=== PATIENT | female | born 1985 | race Caucasian/White ===

== ENCOUNTER 2020-05-05 15:16 | Emergency (ER) | payer BC, OTHER ==
--- NOTE | 2020-05-05 15:40 | EDM.PDOC ---
ED HPI GENERAL MEDICAL PROBLEM - General Chief Complaint: Upper Extremity Injury/Pain Stated Complaint: LEFT THUMB INJURY Time Seen by Provider: 05/05/20 15:30 Source of Information: Reports: Patient History Limitations: Reports: No Limitations - History of Present Illness INITIAL COMMENTS - FREE TEXT/NARRATIVE: Patient presented to the ED because she accidentally cut her left thumb with a knife while preparing dinner. She sustained 2 cm laceration and is able extend and flex her left thumb w/o any difficulty. left thumb Pain Score (Numeric/FACES): 7 Review of Systems - Review of Systems Review Of Systems: See Below Constitutional: Reports: No Symptoms Ears: Reports: No Symptoms Nose: Reports: No Symptoms Mouth/Throat: Reports: No Symptoms Respiratory: Reports: No Symptoms Cardiovascular: Reports: No Symptoms GI/Abdominal: Reports: No Symptoms Genitourinary: Reports: No Symptoms Musculoskeletal: Reports: No Symptoms Skin: Reports: Wound ED EXAM, GENERAL - Physical Exam Exam: See Below Exam Limited By: No Limitations General Appearance: Alert, No Apparent Distress Ears: Normal External Exam, Normal Canal Nose: Normal Inspection, Normal Mucosa, No Blood Throat/Mouth: Normal Inspection, Normal Lips, Normal Teeth Head: Atraumatic, Normocephalic Neck: Normal Inspection, Supple, Non-Tender, Full Range of Motion Cardiovascular: Normal Peripheral Pulses, Regular Rate, Rhythm, No Edema, No Gallop GI/Abdominal: Normal Bowel Sounds, Soft, Non-Tender, No Organomegaly Back Exam: Normal Inspection, Full Range of Motion Extremities: Normal Inspection, Normal Range of Motion, Non-Tender Psychiatric: Normal Affect Skin Exam: Warm ED TRAUMA EXTREMITY PROCEDURES - Laceration/Wound Repair Left Other Lac/Wound Length In cm: 2 Appearance: Superficial, Clean Closed With: Dermabond, Steri-Strips Course - Vital Signs Text/Narrative:: UTD with immunization Last Recorded V/S: Last Vital Signs Temp 37.1 C 05/05/20 15:25 Pulse 68 05/05/20 15:25 Resp 17 05/05/20 15:25 BP 150/97 H 05/05/20 15:25 Pulse Ox 99 05/05/20 15:25 Departure - Departure Time of Disposition: 15:45 Disposition: Home, Self-Care 01 Condition: Good Clinical Impression: Laceration - Discharge Information Instructions: Laceration Care, Adult, [id number] Forms: ED Department Discharge Additional Instructions: please read discharge instructions on laceration no need to apply an antibiotic ointment, the glue is medicated keep the wound dry for 3-5 days do not remove the steri-strips, it will eventually fall off follow up as needed Sepsis Event Note (ED) - Evaluation Sepsis Screening Result: No Definite Risk - Focused Exam Vital Signs: Vital Signs Temp Pulse Resp BP Pulse Ox 05/05/20 15:25 37.1 C 68 17 150/97 H 99
== END 2020-05-05 15:45 | disposition home or self-care (01) ==
LOC: FB.ED 15:16
DX: S61.012A Laceration without foreign body of left thumb without damage to nail, initial encounter (principal); W26.0XXA Contact with knife, initial encounter
CPT/HCPCS: 12001; 12011; 99282; 99282-25

== ENCOUNTER 2020-12-16 16:08 | Emergency (ER) | payer OTHER ==
[2020-12-16] MEDS ORDERED: Sulfamethoxazole/Trimethoprim 800-160 MG Tab PO ONE (16:09)
[2020-12-16] MEDS ORDERED: Sodium Chloride 0.9% 10 ML Syringe FLUSH PRN (16:27)
[2020-12-16] MEDS ORDERED: Morphine 2 MG/ML SYRINGE IVPUSH STA (16:29)
[2020-12-16] MEDS ORDERED: Ketorolac 30 MG/ML SDV IVPUSH STA (16:29)
[2020-12-16] MEDS ORDERED: Ondansetron 4 MG/2 ML SDV IVPUSH STA (16:29)
[2020-12-16] MEDS ORDERED: Alum Hydroxide/Mag Hydroxide 15 ML, Lidocaine 2% 15 ML PO ONE ×2 (16:33)
[2020-12-16] MEDS ORDERED: Iopamidol 755 Mg/ML 100 ML Bottle IV ONE (16:54)
--- NOTE | 2020-12-16 17:03 | EDM.PDOC ---
ED HPI GENERAL MEDICAL PROBLEM - General Chief Complaint: Abdominal Pain Stated Complaint: L SIDE ABD PAIN Time Seen by Provider: 12/16/20 16:20 Source of Information: Reports: Patient History Limitations: Reports: No Limitations - History of Present Illness INITIAL COMMENTS - FREE TEXT/NARRATIVE: Patient presented to the ED because of 2 day history of abdominal pain,epigastric and RLQ pain. The pain is sharp, constant,7/10 with associated nausea and vomiting. There is no fever but has chills. She also c/o headache,constipation and increase frequency of urination. Left Upper Abdomen Pain Score (Numeric/FACES): 6 - Related Data Allergies Allergy/AdvReac Type Severity Reaction Status Date / Time No Known Allergies Allergy Verified 05/05/20 15:49 Home Meds: Home Meds Sertraline [Zoloft] 50 mg PO DAILY 05/05/20 [History] lisinopriL [Lisinopril] 20 mg DAILY 12/16/20 [History] traMADol [Ultram] 100 mg PO Q8H PRN #15 tab 12/16/20 [Rx] Past Medical History - Past Health History Medical/Surgical History: Denies Medical/Surgical History Cardiovascular History: Reports: High Cholesterol, Hypertension Genitourinary History: Reports: UTI, Recurrent [employer]NER History: Reports: Other (See Below) Other [employer]NER History: IUD placed 2017 Psychiatric History: Reports: Depression - Infectious Disease History Infectious Disease History: Reports: None Social & Family History - Family History Family Medical History: No Pertinent Family History - Tobacco Use Tobacco Use Status *Q: Never Tobacco User - Caffeine Use Caffeine Use: Reports: Coffee, Soda - Recreational Drug Use Recreational Drug Use: No ED ROS GENERAL - Review of Systems Review Of Systems: See Below Constitutional: Reports: No Symptoms HEENT: Reports: No Symptoms Respiratory: Reports: No Symptoms Cardiovascular: Reports: No Symptoms Endocrine: Reports: No Symptoms GI/Abdominal: Reports: Abdominal Pain, Constipation, Nausea, Vomiting : Reports: Frequency Musculoskeletal: Reports: No Symptoms Skin: Reports: No Symptoms Neurological: Reports: No Symptoms Psychiatric: Reports: No Symptoms Hematologic/Lymphatic: Reports: No Symptoms ED EXAM, GI/ABD - Physical Exam Exam: See Below Exam Limited By: No Limitations General Appearance: Alert, No Apparent Distress Ears: Normal External Exam, Normal Canal, Hearing Grossly Normal, Normal TMs Nose: Normal Inspection, Normal Mucosa, No Blood Throat/Mouth: Normal Inspection, Normal Lips, Normal Teeth, Normal Gums Head: Atraumatic, Normocephalic Neck: Normal Inspection, Supple, Non-Tender, Full Range of Motion Respiratory/Chest: No Respiratory Distress, Lungs Clear, Normal Breath Sounds, No Accessory Muscle Use, Chest Non-Tender Cardiovascular: Normal Peripheral Pulses, Regular Rate, Rhythm, No Edema, No Gallop, No JVD, No Murmur, No Rub GI/Abdominal Exam: Normal Bowel Sounds, Soft, Non-Tender, No Organomegaly Back Exam: Normal Inspection, Full Range of Motion Extremities: Normal Inspection, Normal Range of Motion, Non-Tender, No Pedal Edema, Normal Capillary Refill Neurological: Alert, Oriented, CN II-XII Intact Course - Vital Signs Text/Narrative:: Lab/CT abd-pelvis result was reviewed and discussed with patient labetalol 20 mg IV x2 Clonidine 0.2 mg PPO x1 hydralazine 20 mg IV x1 Morphine 2 mg IV x1 Zofran 4 mg IV x1 Toradol 30 mg IV x1 Last Recorded V/S: Last Vital Signs Temp 36.3 C 12/16/20 16:17 Pulse 99 12/16/20 18:11 Resp 15 12/16/20 18:11 BP 159/91 H 12/16/20 18:11 Pulse Ox 98 12/16/20 18:11 - Orders/Labs/Meds Orders: Active Orders 24 hr Category Date Time Status Abdomen Pelvis w Cont [CT] Stat Exams 12/16/20 16:34 Taken CULTURE URINE [RM] Stat Lab 12/16/20 18:13 Ordered Saline Lock Insert [OM.PC] Routine Oth 12/16/20 16:27 Ordered Labs: Laboratory Tests 12/16/20 12/16/20 12/16/20 Range/Units 16:45 16:45 17:21 WBC 9.1 (3.0-10.3) x10-3/uL RBC 4.32 (3.60-5.20) x10(6)uL Hgb 13.3 (11.4-15.5) g/dL Hct 39.6 (34.2-48.2) % MCV 91.5 (76.7-100.5) fL MCH 30.9 (23.9-33.9) pg MCHC 33.7 (31.9-34.8) g/dL RDW 12.6 (12.3-16.5) % Plt Count 237 (151-488) x10(3)uL MPV 8.2 (7.1-12.4) fL Neut % (Auto) 75.9 (30.8-76.2) % Lymph % (Auto) 15.9 L (18.4-52.1) % [place] % (Auto) 6.9 (4.4-15.7) % Eos % (Auto) 1.0 (0.6-8.1) % Baso % (Auto) 0.3 (0.2-1.5) % Neut # (Auto) 6.9 H (1.5-6.3) x10-3/uL Lymph # (Auto) 1.5 (1.0-4.4) x10-3/uL [place] # (Auto) 0.6 (0.3-1.0) x10-3/uL Eos # (Auto) 0.1 (0.0-0.8) x10-3/uL Baso # (Auto) 0.0 (0.0-0.1) x10-3/uL Sodium (135-145) mmol/L Potassium (3.5-5.3) mmol/L Chloride (100-110) mmol/L Carbon Dioxide (21-32) mmol/L BUN (7-18) mg/dL Creatinine (0.55-1.02) mg/dL Est Cr Clr Drug Dosing mL/min Estimated GFR (MDRD) (>60) BUN/Creatinine Ratio (9-20) Glucose (80-116) mg/dL Calcium (8.6-10.2) mg/dL Total Bilirubin (0.1-1.3) mg/dL AST (5-25) IU/L ALT (12-36) U/L Alkaline Phosphatase (56-112) IU/L Troponin I (4.0-60.3) pg/mL Total Protein (6.0-8.0) g/dL Albumin (3.5-5.2) g/dL Globulin g/dL Albumin/Globulin Ratio Amylase (25-115) U/L Lipase (73-393) U/L Urine Color Yellow (YELLOW) Urine Appearance Slightly cloudy (CLEAR) Urine pH 5.0 (5.0-6.5) Ur Specific [place] 1.030 H (1.010-1.025) Urine Protein 30 H (NEGATIVE) mg/dL Urine Glucose (UA) Normal (NORMAL) mg/dL Urine Ketones 15 H (NEGATIVE) mg/dL Urine Occult Blood Moderate H (NEGATIVE) Urine Nitrite Negative (NEGATIVE) Urine Bilirubin Small H (NEGATIVE) Urine Urobilinogen 1 H (NEGATIVE) mg/dL Ur Leukocyte Esterase Small H (NEGATIVE) Urine RBC 0-5 (0-5) Urine WBC 0-5 (0-5) Ur Squamous Epith Cells Many H (NS,R,O) Urine Bacteria Few H (NS) Urine Mucus Moderate H (NS) Urine HCG, Qual Negative (NEGATIVE) 12/16/20 12/16/20 12/16/20 Range/Units 17:21 17:21 17:21 WBC (3.0-10.3) x10-3/uL RBC (3.60-5.20) x10(6)uL Hgb (11.4-15.5) g/dL Hct (34.2-48.2) % MCV (76.7-100.5) fL MCH (23.9-33.9) pg MCHC (31.9-34.8) g/dL RDW (12.3-16.5) % Plt Count (151-488) x10(3)uL MPV (7.1-12.4) fL Neut % (Auto) (30.8-76.2) % Lymph % (Auto) (18.4-52.1) % [place] % (Auto) (4.4-15.7) % Eos % (Auto) (0.6-8.1) % Baso % (Auto) (0.2-1.5) % Neut # (Auto) (1.5-6.3) x10-3/uL Lymph # (Auto) (1.0-4.4) x10-3/uL [place] # (Auto) (0.3-1.0) x10-3/uL Eos # (Auto) (0.0-0.8) x10-3/uL Baso # (Auto) (0.0-0.1) x10-3/uL Sodium 138 (135-145) mmol/L Potassium 4.0 (3.5-5.3) mmol/L Chloride 103 (100-110) mmol/L Carbon Dioxide 24 (21-32) mmol/L BUN 20 H (7-18) mg/dL Creatinine 0.9 (0.55-1.02) mg/dL Est Cr Clr Drug Dosing 76.06 mL/min Estimated GFR (MDRD) > 60 (>60) BUN/Creatinine Ratio 22.2 H (9-20) Glucose 99 (80-116) mg/dL Calcium 9.0 (8.6-10.2) mg/dL Total Bilirubin 0.4 (0.1-1.3) mg/dL AST 54 H (5-25) IU/L ALT 56 H (12-36) U/L Alkaline Phosphatase 80 (56-112) IU/L Troponin I 6.0 (4.0-60.3) pg/mL Total Protein 7.3 (6.0-8.0) g/dL Albumin 3.8 (3.5-5.2) g/dL Globulin 3.5 g/dL Albumin/Globulin Ratio 1.1 Amylase 34 (25-115) U/L Lipase 86 (73-393) U/L Urine Color (YELLOW) Urine Appearance (CLEAR) Urine pH (5.0-6.5) Ur Specific [place] (1.010-1.025) Urine Protein (NEGATIVE) mg/dL Urine Glucose (UA) (NORMAL) mg/dL Urine Ketones (NEGATIVE) mg/dL Urine Occult Blood (NEGATIVE) Urine Nitrite (NEGATIVE) Urine Bilirubin (NEGATIVE) Urine Urobilinogen (NEGATIVE) mg/dL Ur Leukocyte Esterase (NEGATIVE) Urine RBC (0-5) Urine WBC (0-5) Ur Squamous Epith Cells (NS,R,O) Urine Bacteria (NS) Urine Mucus (NS) Urine HCG, Qual (NEGATIVE) Meds: Medications Discontinued Medications Generic Name Dose Route Start Last Admin Trade Name Freq PRN Reason Stop Dose Admin Clonidine HCl 0.2 mg 12/16/20 17:45 12/16/20 17:35 Clonidine 0.1 Mg Tab PO 0.2 mg DAILY CORRINA Administration Al Hydroxide/Mg Hydroxide 15 0 ml 12/16/20 16:33 12/16/20 16:45 ml/ Lidocaine HCl 15 ml PO 12/16/20 16:34 15 ml ONETIME ONE Administration Hydralazine HCl 20 mg 12/16/20 17:06 12/16/20 17:17 Hydralazine 20 Mg/Ml Sdv IVPUSH 12/16/20 17:07 20 mg NOW STA Administration Iopamidol 100 ml 12/16/20 16:54 12/16/20 17:14 Iopamidol 755 Mg/Ml 100 Ml Bottle IV 12/16/20 16:55 100 ml . DIRECTED ONE Administration Ketorolac Tromethamine 30 mg 12/16/20 16:29 12/16/20 16:35 Ketorolac 30 Mg/Ml Sdv IVPUSH 12/16/20 16:30 30 mg NOW STA Administration Labetalol HCl 20 mg 12/16/20 17:30 12/16/20 17:36 Labetalol 20 Mg/4 Ml Syringe IVPUSH 12/16/20 17:31 20 mg NOW STA Administration Protocol Morphine Sulfate 2 mg 12/16/20 16:29 12/16/20 16:35 Morphine 2 Mg/Ml Syringe IVPUSH 12/16/20 16:30 2 mg NOW STA Administration Ondansetron HCl 4 mg 12/16/20 16:29 12/16/20 16:37 Ondansetron 4 Mg/2 Ml Sdv IVPUSH 12/16/20 16:30 4 mg NOW STA Administration Sodium Chloride 10 ml 12/16/20 16:27 12/16/20 16:31 Sodium Chloride 0.9% 10 Ml Syringe FLUSH 10 ml ASDIRECTED PRN Administration Keep Vein Open Trimethoprim/Sulfamethoxazole 10 tab 12/16/20 16:09 Sulfamethoxazole/Trimethoprim 800-160 Mg Tab PO 12/16/20 16:10 .STK-MED ONE Departure - Departure Time of Disposition: 18:30 Disposition: Home, Self-Care 01 Condition: Good Clinical Impression: Hypertensive crisis, Abdominal pain, GERD (gastroesophageal reflux disease), Cholelithiasis - Discharge Information Prescriptions: traMADol [Ultram] 100 mg PO Q8H PRN #15 tab PRN Reason: Pain Instructions: Food Choices for Gastroesophageal Reflux Disease, Adult, [id number], Cholelithiasis, [id number], Urinary Tract Infection, Adult, Hypertension, Adult, [id number] Referrals: Daisy Waters NP [Primary Care Provider] - Forms: ED Department Discharge Additional Instructions: Please read discharge instructions on gallstones(cholelithiasis),G ERD,Hypertensive crisis Follow up with your doctor with regards to your gallstones and poorly controlled high blood pressure Septra DS twice daily for 5 days Tramadol 50 mg, 2 tablets with tylenol 1000 mg every 8 hours as needed for pain Sepsis Event Note (ED) - Evaluation Sepsis Screening Result: No Definite Risk - My Orders Last 24 Hours: My Active Orders 12/16/20 16:27 Saline Lock Insert [OM.PC] Routine 12/16/20 16:34 Abdomen Pelvis w Cont [CT] Stat 12/16/20 18:13 CULTURE URINE [RM] Stat - Assessment/Plan Last 24 Hours: My Active Orders 12/16/20 16:27 Saline Lock Insert [OM.PC] Routine 12/16/20 16:34 Abdomen Pelvis w Cont [CT] Stat 12/16/20 18:13 CULTURE URINE [RM] Stat
[2020-12-16] MEDS ORDERED: hydrALAZINE 20 MG/ML SDV IVPUSH STA (17:06)
[2020-12-16] MEDS ORDERED: Labetalol 20 MG/4 ML Syringe IVPUSH STA (17:30)
[2020-12-16] MEDS ORDERED: cloNIDine 0.1 MG Tab PO SCH (17:45)
== END 2020-12-16 18:44 | disposition home or self-care (01) ==
LOC: FB.ED 16:08
DX: K80.20 Calculus of gallbladder without cholecystitis without obstruction (principal); K21.9 Gastro-esophageal reflux disease without esophagitis; I16.9 Hypertensive crisis, unspecified; E78.00 Pure hypercholesterolemia, unspecified; I10 Essential (primary) hypertension; Z79.899 Other long term (current) drug therapy
CPT/HCPCS: 36415; 74177; 80053; 81001; 81025; 82150; 83690; 84484; 85025; 87086; 96374; 96375; 99284; A9270; J0360; J1885; J2270; J2405; J3490; Q9967

== ENCOUNTER 2023-06-16 22:22 | Emergency (ER) | payer OTHER ==
[2023-06-16 22:45] LABS: BASOPHILS PERCENT AUTO 0.4 % (0.2-1.5); EOSINOPHILS ABSOLUTE AUTO 0.1 x10-3/uL (0.0-0.8); EOSINOPHILS PERCENT AUTO 0.9 % (0.6-8.1); HEMATOCRIT 36.4 % (34.2-48.2); HEMOGLOBIN 12.2 g/dL (11.4-15.5); LYMPHOCYTES ABSOLUTE AUTO 2.6 x10-3/uL (1.0-4.4); LYMPHOCYTES PERCENT AUTO 31.2 % (18.4-52.1); MEAN CORPUSCULAR HEMOGLOBIN 29.7 pg (23.9-33.9); MEAN CORPUSCULAR HGB CONC 33.5 g/dL (31.9-34.8); MEAN CORPUSCULAR VOLUME 88.5 fL (76.7-100.5); MEAN PLATELET VOLUME 9.3 fL (7.1-12.4); MONOCYTES ABSOLUTE AUTO 0.7 x10-3/uL (0.3-1.0); MONOCYTES PERCENT AUTO 8.5 % (4.4-15.7); NEUTROPHILS ABSOLUTE AUTO 4.9 x10-3/uL (1.5-6.3); PLATELET COUNT,PLT 207 x10(3)uL (151-488); RED BLOOD CELL COUNT 4.11 x10(6)uL (3.60-5.20); WHITE BLOOD CELL COUNT,WBC 8.3 x10-3/uL (3.0-10.3)
[2023-06-16 22:49] LABS: BLOOD UREA NITROGEN,BUN 8 mg/dL (7-18); BUN/CREATININE RATIO 11.4 (9-20); CALCIUM 9.3 mg/dL (8.6-10.2); CARBON DIOXIDE,CO2 28 mmol/L (21-32); CHLORIDE,CL 102 mmol/L (100-110); CREATININE 0.7 mg/dL (0.55-1.02); ESTIMATED GFR 114 mL/min (>60); GLUCOSE RANDOM 99 mg/dL (80-116); POTASSIUM,K 3.5 mmol/L (3.5-5.3); SODIUM,NA 139 mmol/L (135-145)
[2023-06-16 22:54] LABS: INR 1.02 (1.00-1.24); PROTHROMBIN TIME 10.6 sec (9.0-11.1)
[2023-06-16 22:57] LABS: PTT,PARTIAL THROMBOPLSTIN TIME 26.6 SECONDS (24.4-33.2)
[2023-06-16 23:00] LABS: A/G RATIO 1.1; ALBUMIN 3.9 g/dL (3.5-5.2); ALKALINE PHOSPHATASE 68 IU/L (56-112); AMYLASE 30 U/L (25-115); ASPARTATE AMNIOTRANSFERASE,AST 103 IU/L (5-25); BILIRUBIN TOTAL 0.6 mg/dL (0.1-1.3); PROTEIN TOTAL,TP 7.5 g/dL (6.0-8.0)
[2023-06-16 23:01] LABS: ALANINE AMINOTRANSFERASE,ALT 210 U/L (12-36)
[2023-06-16] MEDS: Sodium Chloride 0.9% 1,000 ML IV SCH (23:05)
[2023-06-16] MEDS: Iopamidol 755 Mg/ML 100 ML Bottle IV SCH (23:10)
[2023-06-16] MEDS: Ondansetron 4 MG/2 ML SDV IVPUSH ONE (23:22)
[2023-06-16] MEDS: Morphine 4 MG/ML VIAL IVPUSH ONE (23:22)
[2023-06-16 23:55] LABS: BILIRUBIN,URINE NEGATIVE (NEGATIVE); GLUCOSE,URINE NORMAL (NORMAL); KETONES,URINE NEGATIVE (NEGATIVE); LEUKOCYTE ESTERASE,URINE NEGATIVE (NEGATIVE); NITRITE,URINE NEGATIVE (NEGATIVE); OCCULT BLOOD,URINE NEGATIVE (NEGATIVE); PH,URINE 6.5 (5.0-6.5); PROTEIN,URINE NEGATIVE (NEGATIVE); UROBILINOGEN,URINE NORMAL (NEGATIVE)
[2023-06-17 00:01] LABS: APPEARANCE,URINE CLEAR (CLEAR); BACTERIA,URINE OCCASIONAL (NS); COLOR,URINE YELLOW (YELLOW); RBC,URINE 0-5 (0-5); SQUAMOUS EPITHELIAL CELLS,UR FEW (NS,R,O); WBC,URINE 0-5 (0-5)
[2023-06-17] MEDS: Sodium Chloride 0.9% 10 ML Syringe FLUSH PRN (01:14)
[2023-06-17] MEDS: Ketorolac 30 MG/ML SDV IVPUSH ONE (01:14)
== END 2023-06-17 01:20 | disposition home or self-care (01) ==
LOC: FB.ED 22:22
DX: G89.18 Other acute postprocedural pain (principal); R10.32 Left lower quadrant pain; I10 Essential (primary) hypertension; E78.00 Pure hypercholesterolemia, unspecified; Z79.899 Other long term (current) drug therapy; Z88.2 Allergy status to sulfonamides
CPT/HCPCS: 36415; 74177; 80053; 81001; 82150; 83690; 85025; 85610; 85730; 96361; 96374; 99284; J1885; J3490; J7030; Q9967